=== PATIENT | female | born 1935 | race Caucasian/White ===

== ENCOUNTER → 2016-07-12 | Outpatient (CLI) | payer OTHER ==
--- NOTE | 2016-07-12 16:01 | US ---
Complete retroperitoneal ultrasound Indication: Follow up complex cyst. Comparison: February 2014. Technique: Complete retroperitoneal ultrasound was performed. Findings: Right kidney measures 11.3 x 5.7 x 6.6 cm. Complex right renal cyst at the mid lateral agustina e currently measures 4.5 x 3.8 x 3.7 cm, compared to previous 4.4 x 3.9 x 4 cm. It contains internal septations. There is no significant color Doppler flow on any of the septations. I believe the measur ement differences represents subjective scanning differences. Left kidney measures 12.7 x 5.2 x 6.7 cm. No mass or cyst. Prevoid bladder volume is 169 mL. Postvoid bladder volume is 13 mL. Ureteral jets are not definitivel y seen. No perinephric mass. No ascites. Impression: No change in complex right renal cyst since 2013.
== END ==
LOC: CIMAGING 10:46
PROVIDERS: ATTEND Internal Medicine Hematology & Oncology
DX: N28.1 Cyst of kidney, acquired (principal)
CPT/HCPCS: 76770-PO